=== PATIENT | female | born 1955 | race Two or more races ===

== ENCOUNTER 2018-05-14 19:11 | Emergency (ER) | payer OTHER ==
[~2018-05-14] VITALS: Ht 170.2 cm; Wt 74.8 kg
[2018-05-14 20:14] LABS: Basophils # (auto) 0.1 uL; Basophils % (auto) 0.8 % (0.0-2.0); Eosinophils # (auto) 0.1 uL; Eosinophils % (auto) 0.8 % (0.0-7.0); Hematocrit 33.3 % (36.0-46.0); Hemoglobin 10.8 g/dL (12.2-16.2); Lymphocytes % (auto) 11.9 % (10.0-50.0); Mean Corpuscular Hemoglobin 20.7 pg (28.0-32.0); Mean Corpuscular Hgb Conc. 32.5 g/dL (32.0-36.0); Mean Corpuscular Volume 63.9 fL (80.0-100.0); Monocytes % (auto) 12.2 % (0.0-12.0); Neutrophils # (auto) 6.2 uL; Neutrophils % (auto) 74.3 % (37.0-80.0); Platelet Count (auto) 156 10^3/uL (140-450); Red Blood Cells 5.21 10^6/uL (4.0-5.20); Red Cell Distribution Width 14.5 % (11.8-14.3); White Blood Cell 8.3 10^3/uL (4.4-10.8)
[2018-05-14 20:39] LABS: Alanine Aminotransferase 19 U/L (13-56); Albumin 3.3 g/dL (3.4-5.0); Alkaline Phosphatase 109 U/L (45-117); Anion Gap 11 (5-15); Aspartate Aminotransferase 11 U/L (15-37); BUN/Creatinine Ratio 23.8; Bilirubin, Total 0.5 mg/dL (0.2-1.0); Blood Urea Nitrogen 38 mg/dL (7-18); Calcium 8.4 mg/dL (8.5-10.1); Carbon Dioxide 27 mmol/L (21-32); Chloride 93 mmol/L (98-107); GFR African American 42 mL/min; GFR Non-African American 35 mL/min; Glucose 135 mg/dL (74-106); Magnesium 2.5 mg/dL (1.6-2.6); Potassium 3.4 mmol/L (3.5-5.1); Sodium 131 mmol/L (136-145); Total Protein 8.3 g/dL (6.4-8.2)
[2018-05-14 20:48] LABS: Urine Bacteria FEW /hpf (None Seen); Urine Blood Negative /uL (Negative); Urine Specific Gravity 1.005 (1.001-1.035); Urine WBC 9 /hpf (0 - 5)
[2018-05-14 21:09] VITALS: BP 184/88
== END 2018-05-14 22:24 | disposition home or self-care (01) ==
LOC: ER 19:17
DX: N39.0 Urinary tract infection, site not specified (principal); F41.9 Anxiety disorder, unspecified; E11.9 Type 2 diabetes mellitus without complications; Z90.710 Acquired absence of both cervix and uterus
CPT/HCPCS: 36415; 71045; 80053; 81001; 82962; 83735; 83880; 84443; 84484; 85025; 94761